=== PATIENT | female | born 1990 | race Caucasian/White ===

== ENCOUNTER 2021-02-20 05:11 | Emergency (ER) | payer OTHER ==
[~2021-02-20] VITALS: Ht 165.1 cm; Wt 54.4 kg
[~2021-02-20 05:11] MED LIST: LIDOCAINE 22 %/30 GM TOP
[2021-02-20 05:19] VITALS: BP 133/74
[2021-02-20] MEDS ORDERED: MUPIROCIN15 GM TOP (05:32)
[2021-02-20] MEDS ORDERED: BACTRIM DS TAB1 EACH PO (05:32)
[2021-02-20] MEDS ORDERED: HIBICLENS118 ML TOP (05:32)
== END 2021-02-20 05:37 | disposition home or self-care (01) ==
LOC: M.ERS 05:11
DX: R21 Rash and other nonspecific skin eruption (principal); F15.10 Other stimulant abuse, uncomplicated; Z98.890 Other specified postprocedural states; Z88.8 Allergy status to other drugs, medicaments and biological substances